=== PATIENT | female | born 1940 | race Caucasian/White ===

== ENCOUNTER 2018-07-12 18:50 | Emergency (ER) | payer OTHER ==
--- NOTE | 2018-07-12 18:47 | EDPHY ---
H & P Time Seen by Provider: 07/12/18 18:53 Constitutional: Initial Vital Signs Temperature (C) 36.8 C 07/12/18 19:05 Heart Rate 202 H 07/12/18 19:05 Respiratory Rate 20 07/12/18 19:05 Blood Pressure 140/103 H 07/12/18 19:05 O2 Sat (%) 96 07/12/18 19:05 O2 Delivery Mode Room Air O2 (L/minute) 15 Allergies/Adverse Reactions: corn [[place]] Allergy (Mild, Verified 12/29/08 14:37) bloating Penicillins Allergy (Verified 12/29/08 14:34) dairy Allergy (Mild, Uncoded 12/29/08 14:38) bloating wheat/oats Allergy (Mild, Uncoded 12/29/08 14:35) bloating Home Medications: Medication Instructions Recorded NK [No Known Home Meds] 07/12/18 Medical Decision Making ED Course/Re-evaluation: CHIEF COMPLAINT: A-fib with RVR HISTORY OF PRESENT ILLNESS: The patient is a 78 y/o female with a history of atrial fibrillation arriving via EMS complaining of shortness of breath and a rapid heart rate. The patient was initially diagnosed with A-fib and placed on CPAP wit supplemental oxygen which resolved the a-fib. She has not been in A-fib since the CPAP. Today at 16: 30 2.5 hours ago, the patient believes she went into atrial fibrillation. She presented to a [facility] which revealed a-fib with RVR. Per EMS the patient had a heart rate of 140bpm-250pbm. She is on Metoprolol, which she took as prescribed today. No fever, headache, body aches, lightheadedness, chest pain, cough, abdominal pain, urinary or bowel complaints, numbness, paresthesias. REVIEW OF SYSTEMS: A 10 point review of systems was performed and is negative with the exception of the elements mentioned in the history of present illness. PHYSICAL EXAM: HR, BP, O2 Sat, RR. Temp noted General Appearance: Alert, well hydrated, appropriate, and non-toxic appearing. Head: Atraumatic without scalp tenderness or obvious injury Eyes: Pupils equal, round, reactive to light and accommodation, EOMI, no trauma , no injection. Ears: Clear bilaterally, no perforation, normal landmarks Nose: Atraumatic, no rhinorrhea, clear. Throat: There is no erythema or exudates, no lesions, normal tonsils, mucus membranes moist. Neck: Supple, 2+ carotid upstroke, nontender, no lymphadenopathy. Respiratory: Tachypneic and dyspneic. No retractions, no distress, no wheezes, and no accessory muscle use. Lungs are clear to auscultation bilaterally. Cardiovascular: Irregularly irregular heart rate, no murmurs, rubs, or gallops. Bilateral carotid, radial, dorsalis pedis, and posterior tibial pulses intact. Good capillary refill all extremities. Gastrointestinal: Abdomen is soft, nontender, non-distended, no masses, no rebound, no guarding, no peritoneal signs. Musculoskeletal: Normal active ROM of all extremities, atraumatic. Neurological: Alert, appropriate, and interactive. The patient has normal DTRs and non-focal cranial nerves, motor, sensory, and cerebellar exam. Skin: No rashes, good turgor, no nodules on palpation. Past medical history: A-fib Past surgical history: Family history: Denies Social history: at bedside, lives in [place], retired DIAGNOSTICS/PROCEDURES/CRITICAL CARE TIME: EKG: The 12 lead EKG was interpreted by myself as atrial fibrillation with RVR and a rate of 220. See hard copy and/or "tracemaster" electronic copy for interpretation. Procedure: Conscious sedation. Indication: Electrical Cardioversion The patient is an appropriate candidate to tolerate procedural sedation. The patient's vitals signs and mental status are appropriate. The risks, benefits and alternatives of the sedation were discussed with the patient. The patient is ASA classification 1. The patient's Mallampati airway score was 1 and the patient did meet the 3-3-2 airway measurements. A time out was completed. The patient was sedated with 30mg IV Ketamine and 40mg IV Propofol. The patient was monitored with continuous pulse oximetry, phototypesetting equipment monitor and end tidal CO2. There were no complications and no significant hypoxemia. I performed both the sedation and the procedure. The total time I spent at the bedside during the procedural sedation was [ ] minutes. The patient was examined after the procedural sedation and has returned to their pre-sedation baseline with normal vital signs and a normal examination. Procedure: Electrical Cardioversion. Indication: Dysrhythmia. Risks, benefits, alternatives discussed with the patient and consent obtained. The patient was on a continuous laboratory monitor, with airway equipment at the bedside. The patient was on continuous pulse oximetry and passive CO2 monitor. The cardioversion was performed with 200 joules synchronized biphasic current. The cardioversion was successful. The patient tolerated the procedure well with no complications. The procedure was performed by myself. Repeat EKG: The 12 lead EKG was interpreted by myself as sinus rhythm with a rate of 84. See hard copy and/or "tracemaster" electronic copy for interpretation DIFFERENTIAL DIAGNOSIS: The differential diagnosis for the patient's narrow complex tachycardia included but was not limited to various causes of sinus tachycardia such as dehydration and medicines, SVT, atrial flutter, atrial fibrillation, pulmonary causes. MEDICAL DECISION MAKING: The patient is a 78 y/o female with a history of atrial fibrillation arriving via EMS presenting with shortness of breath and a rapid heart rate. Today at 16: 30 2.5 hours ago, the patient believes she went into atrial fibrillation. She presented to a [facility] which revealed a-fib with RVR. Per EMS the patient had a heart rate of 140bpm-250pbm. On exam the patient is tachypneic and is in A -fib per the monitor. Patient meets criteria for unstable a-fib with RVR as she is dyspneic and has minor changes in the ST waves. I thoroughly discussed the risks and benefits associated with having and electrical cardioversion vs. a medicinal cardioversion. She is comfortable with plan for a cardioversion. EKG ordered. I will transfer this patient to the trauma room for an electrical cardioversion. 1858: I reviewed patient's EKG as atrial fibrillation with RVR and a rate of 220. 1904: Reassessed patient as she is now in trauma room 1 for the cardioversion. Patient's heart rate is 224 and she is dyspneic. She has a good blood pressure of 140/103. 1913: 30mg IV Ketamine and 40mg IV Propofol administered. 1916: Shock delivered. Patient's heart rate has dropped to a rate of 92 with a sinus rhythm. 1921: Patient has a heart rate of 87 in sinus rhythm. 5mg IV Lopressor administered. Repeat EKG ordered. 1922: I reviewed patient's repeat EKG as sinus rhythm with a rate of 84 1929: Patient's heart rate is now 63 and regular. She is waking up from sedation. 1999: Patient's troponin is 0.3. She is becoming more awake. She will be road tested pending discharge. 2015: Reassessed patient, she is ready for discharge. I discussed anticoagulation with the patient and believe that she does not need to be anticoagulated at this time due to her low arcelia vas score. However, I have advised her to follow up with her matrix drier tender and possible anticoagulation. Return precautions provided; patient is comfortable with this plan. - Data Points Laboratory Results: 07/12/18 19:52 POC Troponin I 0.03 ng/mL ng/mL (0.00-0.08) Medications Given: Discontinued Medications Ketamine HCl 30 mg/ Syringe 0.6 mls @ 36 mls/hr IVP ONCE ONE Stop: 07/12/18 19:04 Last Admin: 07/12/18 19:13 Dose: 0.6 mls Metoprolol Tartrate (Lopressor Injection) 5 mg IVP EDNOW ONE Stop: 07/12/18 19:21 Last Admin: 07/12/18 19:23 Dose: 5 mg Propofol (Diprivan) 40 mg IVP EDNOW ONE Stop: 07/12/18 19:04 Last Admin: 07/12/18 19:15 Dose: 40 mg Point of Care Test Results: Chemistry 07/12/18 19:52 POC Troponin I 0.03 ng/mL ng/mL (0.00-0.08) Departure - Departure Disposition: Home, Routine, Self-Care Clinical Impression: Atrial fibrillation with RVR Atrial fibrillation Qualifiers: Atrial fibrillation type: unspecified Qualified Code(s): I48.91 - Unspecified atrial fibrillation Condition: Good Instructions: A-fib (Atrial Fibrillation) (ED) Additional Instructions: 1. Follow-up with your matrix drier tender within 72 hours. 2. Return to the Emergency Department for fever, chest pain, shortness of breath , increasing pain or other worsening of condition. Referrals: Amol Heaton MD [Medical Doctor] - As per Instructions Report Scribed for: Griffin Elizondo Report Scribed by: Deanne Kirk Date of Report: 07/12/18 Time of Report: 19:31
[2018-07-12] MEDS ORDERED: KETAMINE IVP ONE (19:03)
[2018-07-12] MEDS ORDERED: PROPOFOL 200 MG/20 ML VIAL IVP ONE (19:03)
[2018-07-12] MEDS ORDERED: KETAMINE 200 MG/20 ML VIAL ONE (19:08)
[2018-07-12] MEDS ORDERED: METOPROLOL TARTRATE 5 MG/5 ML INJ ONE (19:18)
[2018-07-12] MEDS ORDERED: METOPROLOL TARTRATE 5 MG/5 ML INJ IVP ONE (19:20)
--- NOTE | 2018-07-12 20:02 | CPEKG ---
Test Reason : OPEN Blood Pressure : / mmHG Vent. Rate : 220 BPM Atrial Rate : 224 BPM P-R Int : 000 ms QRS Dur : 069 ms QT Int : 225 ms P-R-T Axes : 000 049 242 degrees QTc Int : 431 ms Atrial fibrillation with rapid V-rate Repolarization abnormality, prob rate related Confirmed by Griffin Elizondo ([id number]) on 07/12/2018 8:02:10 PM Referred By: Griffin Elizondo Confirmed By:Griffin Elizondo
--- NOTE | 2018-07-12 20:02 | CPEKG ---
Test Reason : OPEN Blood Pressure : / mmHG Vent. Rate : 084 BPM Atrial Rate : 087 BPM P-R Int : 161 ms QRS Dur : 072 ms QT Int : 398 ms P-R-T Axes : 046 024 037 degrees QTc Int : 471 ms Sinus rhythm Confirmed by Griffin Elizondo ([id number]) on 07/12/2018 8:02:07 PM Referred By: Griffin Elizondo Confirmed By:Griffin Elizondo
[2018-07-12 20:37] VITALS: BP 118/72
== END 2018-07-12 20:36 | disposition home or self-care (01) ==
LOC: EDUNIT# → UNDOADMOB 19:45
PROC: 5A2204Z Restoration of Cardiac Rhythm, Single (ICD-10-PCS; principal; 2018-07-12)
DX: I48.91 Unspecified atrial fibrillation (principal)
CPT/HCPCS: 92960; 93005; 96374; 96375; 99152; 99285; J2704; 84484-ER